=== PATIENT | female | born 1980 | race Caucasian/White ===

== ENCOUNTER 2016-12-09 21:16 | Emergency (ER) | payer BC ==
[~2016-12-09] VITALS: Ht 162.6 cm; Wt 97.5 kg
[~2016-12-09 21:16] MED LIST: ALBU8.5H2 IH; CYAN100T3 GT; GABA-534 PO; MAGN200T5 PO
[2016-12-09] MEDS ORDERED: ONDANSETRON ODT 4 MG TAB.RAPDIS SL ONE (21:45)
[2016-12-09] MEDS ORDERED: HYDROMORPHONE 1 MG/1 ML DISP.SYRIN IM ONE ×2 (21:45→23:00)
[2016-12-09] MEDS ORDERED: DIAZEPAM 2 MG TABLET PO ONE (21:45)
[2016-12-09] MEDS ORDERED: ONDANSETRON 4 MG/2 ML VIAL ONE (21:55)
[2016-12-09] MEDS ORDERED: DIAZEPAM 5 MG TABLET ONE (21:55)
[2016-12-09] MEDS ORDERED: HYDROMORPHONE 1 MG/1 ML DISP.SYRIN ONE (21:55)
[2016-12-09] MEDS ORDERED: ONDANSETRON ODT 4 MG TAB.RAPDIS ONE (21:57)
[2016-12-09 22:00] LABS: *BILIRUBIN,URIN NEGATIVE (NEGATIVE); *BLOOD, URINE 1+ (NEGATIVE); *CLARITY,URINE CLEAR (CLEAR); *COLOR,URINE YELLOW (YELLOW); *KETONES,URINE NEGATIVE (NEGATIVE); *PROTEIN,URINE NEGATIVE (NEGATIVE); *URINE HCG, QUAL NEGATIVE (NEGATIVE); *UROBILINOGEN,URINE 0.2 E.U./dl (NORMAL); NITRITE, URINE NEGATIVE (NEGATIVE); PH,URINE 7.5 (5.0-8.0); UGLUCOSE NEGATIVE (NEGATIVE)
[2016-12-09 22:03] LABS: CALCIUM 8.7 mg/dL (8.5-10.1); CREATININE 0.8 mg/dL (0.6-1.3); POTASSIUM 3.6 mmol/L (3.5-5.1)
[2016-12-09 22:07] LABS: BASOPHILS # (AUTO) 0.1 K/uL (0.0-8.0); BASOPHILS % (AUTO) 0.9 % (0.0-2.0); EOSINOPHILS # (AUTO) 0.4 K/uL (0.0-0.7); EOSINOPHILS % (AUTO) 3.3 % (0.0-7.0); HEMATOCRIT 42.5 % (37-47); HEMOGLOBIN 13.9 G/DL (12.0-16.0); LYMPHOCYTES # (AUTO) 3.2 K/UL (0.8-4.8); LYMPHOCYTES % (AUTO) 27.1 % (20.5-51.5); MEAN CORPUSCULAR HEMOGLOBIN 28.6 UUG (27.0-31.0); MEAN CORPUSCULAR HGB CONC 33 g/dL (32.0-37.0); MEAN CORPUSCULAR VOLUME 87.3 FL (81.0-99.0); MONOCYTES # (AUTO) 0.8 K/UL (0.1-1.30); NEUTROPHILS # (AUTO) 7.3 K/UL (1.8-8.9); NEUTROPHILS % (AUTO) 61.7 % (38.5-71.5); PLATELET COUNT (AUTO) 349 K/UL (150-450); RED BLOOD CELL COUNT(AUTO) 4.87 MIL/UL (4.2-5.4); RED CELL DISTRIBUTION WIDTH 12.4 % (11.5-14.5); WHITE BLOOD COUNT (AUTO) 11.8 K/UL (4.0-11.2)
[2016-12-09 22:10] LABS: LEUKOCYTE ESTERASE ,URINE TRACE (NEGATIVE)
[2016-12-09 22:11] LABS: MUCUS,URINE FEW /LPF (0-FEW); SQUAMOUS EPITHELIAL CELL,UR FEW /HPF (NONE SEEN); WBC,URINE 0-3 /HPF (0-3)
--- NOTE | 2016-12-09 22:16 | NUR ---
Patient to radiology for CT scan via gurney.
--- NOTE | 2016-12-09 22:30 | NUR ---
Patient returned from CT.
[2016-12-09] MEDS ORDERED: HYDROMORPHONE 2 MG/1 ML DISP.SYRIN ONE (23:01)
--- NOTE | 2016-12-09 23:49 | NUR ---
Patient discharged to home in stable conditon. Written and verbal after care instructions given. Patient verbalizes understanding of instructions.
== END 2016-12-09 23:50 | disposition home or self-care (01) ==
LOC: ER 21:19
DX: M54.5 Low back pain (principal); J45.909 Unspecified asthma, uncomplicated; G43.909 Migraine, unspecified, not intractable, without status migrainosus; F10.20 Alcohol dependence, uncomplicated; Z88.6 Allergy status to analgesic agent
CPT/HCPCS: 36415; 84703; 85025; A4663; J1170; J2405; Q0162

== ENCOUNTER 2017-06-27 19:38 | Emergency (ER) | payer BC ==
[~2017-06-27] VITALS: Ht 162.6 cm; Wt 111.1 kg
[~2017-06-27 19:38] MED LIST changes: -ALBU8.5H2 IH; +ALBU8.5H8 IH
[2017-06-27 20:25] LABS: *BILIRUBIN,URIN NEGATIVE (NEGATIVE); *BLOOD, URINE 2+ (NEGATIVE); *CLARITY,URINE CLEAR (CLEAR); *COLOR,URINE YELLOW (YELLOW); *KETONES,URINE NEGATIVE (NEGATIVE); *PROTEIN,URINE NEGATIVE (NEGATIVE); *UROBILINOGEN,URINE 0.2 E.U./dl (NORMAL); LEUKOCYTE ESTERASE ,URINE NEGATIVE (NEGATIVE); NITRITE, URINE NEGATIVE (NEGATIVE); UGLUCOSE NEGATIVE (NEGATIVE)
--- NOTE | 2017-06-27 20:41 | NUR ---
Pt ambulated to room, changed into gown. Pt c/o severe LUQ pain with N/V. Pt resting in position of comfort for self. Awaiting further evaluation. Family at bedside.
[2017-06-27 20:47] LABS: *URINE HCG, QUAL NEGATIVE (NEGATIVE)
[2017-06-27 20:49] LABS: BACTERIA,URINE NONE SEEN /HPF (NONE SEEN); SQUAMOUS EPITHELIAL CELL,UR NONE SEEN /HPF (NONE SEEN); WBC,URINE 0-3 /HPF (0-3)
[2017-06-27] MEDS ORDERED: HYDROMORPHONE 1 MG/1 ML DISP.SYRIN IV ONE ×3 (21:15→23:45)
[2017-06-27] MEDS ORDERED: ONDANSETRON 4 MG/2 ML VIAL IV ONE (21:15)
[2017-06-27] MEDS ORDERED: IV NORMAL SALINE 1000 ML BAG IV ONE (21:15)
--- NOTE | 2017-06-27 21:23 | NUR ---
Pt seen by Dr. Mancilla. IV established. Labs drawn and sent. Pt medicated for discomfort, will monitor for effects of medication. Pt resting in position of comfort for self
[2017-06-27] MEDS ORDERED: ONDANSETRON 4 MG/2 ML VIAL ONE ×2 (21:33→22:30)
[2017-06-27] MEDS ORDERED: HYDROMORPHONE 4 MG/1 ML DISP.SYRIN ONE ×2 (21:34→22:29)
--- NOTE | 2017-06-27 21:40 | NUR ---
Pt to CT via ambrosio
[2017-06-27 21:41] LABS: BASOPHILS # (AUTO) 0.2 K/uL (0.0-8.0); EOSINOPHILS # (AUTO) 0.2 K/uL (0.0-0.7); EOSINOPHILS % (AUTO) 2.1 % (0.0-7.0); HEMATOCRIT 41.9 % (37-47); HEMOGLOBIN 13.8 G/DL (12.0-16.0); LYMPHOCYTES % (AUTO) 26.2 % (20.5-51.5); MEAN CORPUSCULAR HEMOGLOBIN 28.5 UUG (27.0-31.0); MEAN CORPUSCULAR HGB CONC 33 g/dL (32.0-37.0); MEAN CORPUSCULAR VOLUME 86.4 FL (81.0-99.0); MONOCYTES # (AUTO) 0.6 K/UL (0.1-1.30); MONOCYTES % (AUTO) 5.6 % (0.0-11.0); NEUTROPHILS # (AUTO) 7.5 K/UL (1.8-8.9); NEUTROPHILS % (AUTO) 64.1 % (38.5-71.5); PLATELET COUNT (AUTO) 352 K/UL (150-450); RED BLOOD CELL COUNT(AUTO) 4.85 MIL/UL (4.2-5.4); WHITE BLOOD COUNT (AUTO) 11.5 K/UL (4.0-11.2)
[2017-06-27 21:55] LABS: BILIRUBIN,DIRECT 0.1 mg/dL (0.0-0.2); BILIRUBIN,TOTAL 0.4 mg/dL (0.2-1.0); CREATININE 0.8 mg/dL (0.6-1.3); POTASSIUM 3.4 mmol/L (3.5-5.1); TOTAL PROTEIN, SERUM 8.2 g/dL (6.4-8.2)
--- NOTE | 2017-06-27 22:07 | NUR ---
Pt returned from CT via gurney. Pt conts to c/o severe pain. Sts she had some relief at first with previous medications but s/p moving during CT the pain returned. Dr. Mancilla notified. Awaiting further orders
[2017-06-27] MEDS ORDERED: ONDANSETRON IV *ER 4 MG/2 ML VIAL IV ONE (22:15)
--- NOTE | 2017-06-27 22:17 | NUR ---
Pt medicated for cont. discomfort, will monitor for effects of medication. Pt repositioned for comfort. Family remains at bedside.
--- NOTE | 2017-06-27 23:26 | NUR ---
Pt sts pain improving with previous medication. Sts pain is a 5/10. Pt c/o severe itching to legs and back. Dr. Mancilla notified and pt medicated. Will monitor for effects of medication.
[2017-06-27] MEDS ORDERED: diphenhydrAMINE 50 MG/1 ML VIAL IV ONE (23:30)
[2017-06-27] MEDS ORDERED: diphenhydrAMINE 50 MG/1 ML VIAL ONE (23:39)
[2017-06-27] MEDS ORDERED: FENTANYL CITRATE 100 MCG/2 ML AMPUL IV ONE (23:45)
--- NOTE | 2017-06-27 23:52 | NUR ---
Pt requested more pain medication prior to discharge. Dr. Mancilla notified and pt medicated, will monitor for effects of medication.
[2017-06-28] MEDS ORDERED: FENTANYL CITRATE 100 MCG/2 ML AMPUL ONE (00:04)
--- NOTE | 2017-06-28 00:10 | NUR ---
Pt sts pain improved with medication. Pt stable for discharge per Dr. Mancilla. IV dc'd, catheter intact, drsg applied and no problems noted to site. Pt and given ACI. Both verbalized understanding of dc instructions. Pt wheeled out of er via w/c with ride home.
[2017-06-28 00:50] VITALS: BP 138/75
== END 2017-06-28 00:10 | disposition home or self-care (01) ==
LOC: ER 19:39
DX: M54.5 Low back pain (principal); R11.2 Nausea with vomiting, unspecified; R10.32 Left lower quadrant pain; J45.909 Unspecified asthma, uncomplicated; Z88.5 Allergy status to narcotic agent; Z90.49 Acquired absence of other specified parts of digestive tract; G43.909 Migraine, unspecified, not intractable, without status migrainosus
CPT/HCPCS: 36415; 70030-TC; 71010; 83690; 84703; 85025; 93005; A4663; J1170; J1200; J2405; J3010; J7030

== ENCOUNTER 2017-07-03 19:22 | Emergency (ER) | payer BC ==
[~2017-07-03] VITALS: Ht 162.6 cm; Wt 111.1 kg
[2017-07-03] MEDS ORDERED: HYDROCODONE/ACETAMINOPHEN 10-3 (19:32)
[2017-07-03] MEDS ORDERED: METRONIDAZOLE 500 MG (19:32)
[2017-07-03] MEDS ORDERED: CIPROFLOXACIN 500 MG (19:32)
[2017-07-03 19:56] LABS: *BILIRUBIN,URIN NEGATIVE (NEGATIVE); *BLOOD, URINE NEGATIVE (NEGATIVE); *CLARITY,URINE CLEAR (CLEAR); *COLOR,URINE YELLOW (YELLOW); *KETONES,URINE NEGATIVE (NEGATIVE); *PROTEIN,URINE NEGATIVE (NEGATIVE); *UROBILINOGEN,URINE 0.2 E.U./dl (NORMAL); LEUKOCYTE ESTERASE ,URINE NEGATIVE (NEGATIVE); NITRITE, URINE NEGATIVE (NEGATIVE); UGLUCOSE NEGATIVE (NEGATIVE)
[2017-07-03 19:57] LABS: *URINE HCG, QUAL NEGATIVE (NEGATIVE); BACTERIA,URINE FEW /HPF (NONE SEEN); RBC,URINE 0-3 /HPF (0-3); SQUAMOUS EPITHELIAL CELL,UR FEW /HPF (NONE SEEN); WBC,URINE 0-3 /HPF (0-3)
[2017-07-03] MEDS ORDERED: HYDROMORPHONE 1 MG/1 ML DISP.SYRIN IV ONE ×2 (20:00→20:45)
[2017-07-03] MEDS ORDERED: ONDANSETRON 4 MG/2 ML VIAL IV ONE ×2 (20:00→20:45)
[2017-07-03] MEDS ORDERED: IV NORMAL SALINE 1000 ML BAG IV ONE (20:00)
[2017-07-03 20:07] LABS: BASOPHILS # (AUTO) 0.1 K/uL (0.0-8.0); BASOPHILS % (AUTO) 1.1 % (0.0-2.0); EOSINOPHILS # (AUTO) 0.2 K/uL (0.0-0.7); EOSINOPHILS % (AUTO) 2.3 % (0.0-7.0); HEMATOCRIT 40.6 % (31.2-41.9); HEMOGLOBIN 14.2 g/dL (10.9-14.3); LYMPHOCYTES # (AUTO) 2.7 K/uL (20.0-40.0); LYMPHOCYTES % (AUTO) 28.5 % (20.5-51.5); MEAN CORPUSCULAR HEMOGLOBIN 30.2 uug (24.7-32.8); MEAN CORPUSCULAR HGB CONC 35 g/dL (32.3-35.6); MEAN CORPUSCULAR VOLUME 86.3 fL (75.5-95.3); MONOCYTES # (AUTO) 0.7 K/uL (2.0-10.0); MONOCYTES % (AUTO) 7.4 % (0.0-11.0); NEUTROPHILS # (AUTO) 5.8 K/uL (1.8-8.9); NEUTROPHILS % (AUTO) 60.7 % (38.5-71.5); PLATELET COUNT (AUTO) 298 K/uL (179-408); WHITE BLOOD COUNT (AUTO) 9.6 K/uL (3.8-11.8)
[2017-07-03 20:13] LABS: CREATININE 0.8 mg/dL (0.6-1.3); POTASSIUM 3.8 mmol/L (3.5-5.1)
[2017-07-03] MEDS ORDERED: HYDROMORPHONE 4 MG/1 ML DISP.SYRIN ONE ×3 (20:14→22:19)
[2017-07-03] MEDS ORDERED: ONDANSETRON 4 MG/2 ML VIAL ONE ×2 (20:14→20:58)
[2017-07-03 20:19] LABS: BILIRUBIN,DIRECT 0.1 mg/dL (0.0-0.2); BILIRUBIN,TOTAL 0.3 mg/dL (0.2-1.0)
[2017-07-03] MEDS ORDERED: diphenhydrAMINE 50 MG CAPSULE PO ONE (21:30)
[2017-07-03] MEDS ORDERED: diphenhydrAMINE 50 MG CAPSULE ONE (21:50)
[2017-07-03] MEDS ORDERED: HYDROMORPHONE 1 MG/1 ML DISP.SYRIN IM ONE (22:00)
--- NOTE | 2017-07-03 22:59 | NUR ---
Patient discharged to home in stable conditon. Written and verbal after care instructions given. Patient verbalizes understanding of instructions.
[2017-07-03 23:00] VITALS: BP 151/86
== END 2017-07-03 23:00 | disposition home or self-care (01) ==
LOC: ER 19:23
DX: R10.32 Left lower quadrant pain (principal); M54.5 Low back pain; R11.2 Nausea with vomiting, unspecified; J45.909 Unspecified asthma, uncomplicated; Z88.6 Allergy status to analgesic agent; Z90.49 Acquired absence of other specified parts of digestive tract; G43.909 Migraine, unspecified, not intractable, without status migrainosus
CPT/HCPCS: 36415; 71010; 83690; 84703; 85025; 93005; A4663; J1170; J2405; J7030; Q0163

== ENCOUNTER 2017-08-19 18:32 | Emergency (ER) | payer BC ==
[~2017-08-19] VITALS: Ht 162.6 cm; Wt 111.1 kg
[~2017-08-19 18:32] MED LIST changes: +CIPROFLOXACIN 500 MG; +HYDROCODONE/ACETAMINOPHEN 10-3; +METRONIDAZOLE 500 MG
--- NOTE | 2017-08-19 19:05 | NUR ---
pt endorsed to third shift lieutenant, Louis CAMPOS. YULIYA MCKEON at bedside for MSE
[2017-08-19] MEDS ORDERED: ONDANSETRON ODT 4 MG TAB.RAPDIS SL ONE (19:15)
--- NOTE | 2017-08-19 19:18 | NUR ---
Pt. left AMA, form signed by .
--- NOTE | 2017-08-19 19:30 | NUR ---
physically wasted two 4mg Zofran ODT, brick picker aware. Pt was off Pyxis list after leaving AMA.
[2017-08-19] MEDS ORDERED: ONDANSETRON ODT 4 MG TAB.RAPDIS ONE (19:31)
== END 2017-08-19 19:26 | disposition left against medical advice (07) ==
LOC: ER 18:33
DX: S40.021A Contusion of right upper arm, initial encounter (principal); S09.90XA Unspecified injury of head, initial encounter; G43.909 Migraine, unspecified, not intractable, without status migrainosus; J45.909 Unspecified asthma, uncomplicated; Z90.49 Acquired absence of other specified parts of digestive tract; W01.0XXA Fall on same level from slipping, tripping and stumbling without subsequent striking against object, initial encounter; Y92.89 Other specified places as the place of occurrence of the external cause; Y93.89 Activity, other specified; Y99.8 Other external cause status
CPT/HCPCS: 93005; A4663; Q0162